=== PATIENT | female | born 1965 | race Caucasian/White ===

== ENCOUNTER 2023-07-06 09:56 | Outpatient (CLI) | payer BC, SELFPAY | END 2023-07-06 09:57 | disposition home or self-care (01) | LOC: NFLDREF 09:57 | PROVIDERS: PCP Family Medicine; Visit Provider Family Medicine | DX: R10.11 Right upper quadrant pain (principal); R53.83 Other fatigue | CPT/HCPCS: 80053 ==

== ENCOUNTER 2023-07-11 08:39 | Outpatient (CLI) | payer BC, SELFPAY ==
--- NOTE | 2023-07-11 08:45 | CRLHL7_ITS ---
For Patients: As a result of the Century Cures Act, medical imaging exams and procedure reports are released immediately into your electronic medical record. You may view this report before your referring provider. If you have questions, please contact your health care provider. INDICATION: Right upper quadrant pain COMPARISON: CT 09/30/2021 TECHNIQUE: Real time sellers scale imaging and color Doppler analysis was performed of the right upper quadrant. FINDINGS: The patient`s liver is of normal size and has diffusely increased echogenicity. There is a normal appearance of the hepatic IVC and proximal abdominal aorta. There is no evidence of ascites. The gallbladder is of normal size and there are adherent foci associated with the gallbladder wall measuring up to 5 millimeters. The gallbladder wall measures 2.7 mm in thickness. The common bile duct is of normal size and measures 4 mm in diameter at the level of the mariluz hepatis. The pancreas appears normal. Hyperechoic focus within the right kidney measuring 5 millimeters. The right kidney measures 11 point cm in length. IMPRESSION: Adherent sludge versus polyps in the gallbladder measuring up to 5 millimeters. No biliary obstruction. Hepatic steatosis. Nonobstructing 5 millimeter right renal stone. Dictated by Jeremy Quinn MD @ 07/13/2023 6:23:46 AM (Electronically Signed)
== END 2023-07-11 08:40 | disposition home or self-care (01) ==
LOC: US 08:39
PROVIDERS: PCP Family Medicine; Visit Provider Family Medicine
DX: R10.11 Right upper quadrant pain (principal); K76.0 Fatty (change of) liver, not elsewhere classified; N20.0 Calculus of kidney
CPT/HCPCS: 76705

== ENCOUNTER 2023-07-31 08:58 | Day surgery (SDC) | payer BC, SELFPAY ==
[2023-07-31] VITALS (15 sets, daily range): BP systolic 138–160; BP diastolic 67–98; PULSE 72–89; RESP 10–16; TEMP 36.4–37.3; O2SAT 95–99; BMI 34.2
[2023-07-31] MEDS: LACTATED RINGERS 1000 ML 1,000 ML 100 ML IV (09:31)
--- NOTE | 2023-07-31 09:44 | P.GSOP_ITS ---
Operative Note Pre-op diagnosis: 1. Chronic cholecystitis. 2. Possible biliary colic. Post-op diagnosis: Same Type of Procedure: 1. Laparoscopic cholecystectomy. Indications: 58-year-old female was seen in clinic for evaluation of right upper quadrant pain. Patient stated that she had ?GI issues? for years. She has diarrhea once a week and her bowel movements are usually not regular. However, her abdominal pain was new. In the last 5 weeks prior to her presentation to clinic she complained of dull aching and occasional sharp episodes of right upper quadrant pain. The pain was usually present after eating and sometimes without eating. The pain would start 30-60 minutes after eating and was associated with nausea and bloating. Patient vomited once. She did a trial of omeprazole but did not notice improvement in her pain. Upon her workup she was found to have normal WBC and normal liver function tests. Her gallbladder ultrasound showed gallbladder sludge versus polyps measuring up to 5 mm. The common bile duct was normal at 4 mm. In the gallbladder wall was measuring 3 mm thick. On clinical exam patient had tenderness to deep palpation in the right upper quadrant with negative Salmon sign. Given patient's clinical history and her laboratory and imaging findings, chronic cholecystitis and possible biliary colic was suspected, and laparoscopic cholecystectomy was recommended. The procedure was discussed in detail. The risks associated procedure including infection, bleeding, injury to intra-abdominal organs, and injury to the common bile duct were all discussed with the patient, and she agreed to proceed. Procedure Description: After discussing the risks and benefits of the procedure, the patient signed informed consent.? The operative site was marked and the patient was brought to the operating room and placed on the operating table in supine position.? Care was taken to pad the patient's pressure points.?? The patient was then intubated by anesthesia.?? The operative site was then prepped and draped in the usual sterile fashion.? A time-out was then performed. A 5-mm laparoscopy port was placed in the left upper quadrant guided by a 5-mm laparoscope placed into a translucent trochar.~ Passage through the layers of the abdominal wall was visualized with the laparoscope.~ A pneumoperitoneum was established. A 0-degree 5-mm laparoscope was advanced into the abdomen. The abdomen was briefly surveyed, and no adhesions were noted. A 10-mm port were placed infraumbilically and two more 5 mm ports were placed on the right under direct visualization by laparoscope. The camera was then changed to 10 mm 30- degree scope and placed into the abdomen through the 10 mm port. The left upper quadrant port entrance was examined and no injury to intra-abdominal organs was identified. The gallbladder was identified, the fundus grasped and retracted cephalad. Omentum was adherent to the anterior wall of the gallbladder and those adhesions were taken down with cautery. The infundibulum was grasped and retracted laterally, exposing the peritoneum overlying the triangle of Calot. This was th en divided and exposed in a blunt fashion and with hook cautery. Common bile duct was not identified but care was taken not to injure it. The cystic duct was clearly identified and bluntly dissected circumferentially. Cystic artery was identified and tissues around it were dissected off. The cystic artery was curving on the medial side of the gallbladder. This was clipped with 5 mm clips on the patient's side and the gallbladder side and divided with scissors. The cystic duct was then further skeletonized bluntly and with hook cautery. Posterior laterally to the cystic duct the divided ti ssue was friable and contained a small vein. I elected to place 5 mm clips on this divided tissue to avoid bleeding. The cystic duct was then doubly ligated with surgical clips on the patient's side and singly clipped on the gallbladder side and divided. The gallbladder was dissected from the liver bed in retrograde fashion using hookcautery. The gallbladder was placed into an Endo-Catch bag and removed through the infraumbilical incision. Surgical site was examined for bleeding. Bleeding from the liver bed was controlled with hook cautery. The fascia of the infraumbilical incision was then closed with 0-0 vicryl using Eric Inna needle under direct visualization. Pneumoperitoneum was completely reduced after viewing removal of the trocars under direct vision. The skin was then closed with 4-0 monocryl and steristrips were applied. Instrument, sponge, and needle counts were correct at closure and at the conclusion of the case. The patient was transferred to PACU in stable condition. Findings: No acute inflammation noted. The gallbladder was floppy and omentum was adherent to the gallbladder suggestive of chronic inflammation. Anesthesia: GETA Surgeon: Uriel Candelaria MD Estimated blood loss (mL): 5 Specimen: Gallbladder Condition: stable Disposition: PACU Date of procedure: 07/31/23
--- NOTE | 2023-07-31 09:44 | W.PM.H&PU ---
History & Physical Update History & Physical Update H&P Reviewed and patient assessed: No changes noted
[2023-07-31] MEDS: CEFAZOLIN 2 GM INJ IVP (10:21)
--- NOTE | 2023-07-31 11:28 | W.ANESCHARGE ---
Anesthesia Charges Start Date/Time Anesthesia Start Date: 07/31/23 Anesthesia Start Time: 10:12 Stop Date/Time Anesthesia Stop Date: 07/31/23 Anesthesia Stop Time: 11:21
[2023-07-31] MEDS: HYDROmorphone 0.5 mg/0.5 ml inj IVP ×2 (11:36→11:49)
--- NOTE | 2023-07-31 11:38 | W.ANESCHARGE ---
Anesthesia Charges Start Date/Time Anesthesia Start Date: 07/31/23 Anesthesia Start Time: 10:12 Stop Date/Time Anesthesia Stop Date: 07/31/23 Anesthesia Stop Time: 11:21
[2023-07-31] MEDS: HYDROCODONE-ACETAMIN 5-325 MG 1 TAB PO (12:22)
== END 2023-07-31 13:13 | disposition home or self-care (01) ==
PROVIDERS: PCP Family Medicine; Visit Provider Surgery
PROC: 0FT44ZZ Resection of Gallbladder, Percutaneous Endoscopic Approach (ICD-10-PCS; CPT 47562; principal; 2023-07-31 10:15)
DX: K81.1 Chronic cholecystitis (principal)
CPT/HCPCS: 47562; 00790; 88304; A9270; J0330; J0690; J1100; J1170; J2250; J2405; J2704; J3010; J3490; J7120

== ENCOUNTER 2023-10-29 08:21 | Outpatient (CLI) | payer BC, SELFPAY ==
--- NOTE | 2023-10-29 08:15 | MM_ITS ---
BILATERAL SCREENING MAMMOGRAPHY. COMPARISON: 08/26/2021, 04/04/2017, 11/25/2012 FINDINGS: SCATTERED FIBROGLANDULAR DENSITIES ARE PRESENT. NO SUSPICIOUS FINDINGS. IMPRESSION: NO EVIDENCE OF MALIGNANCY. RECOMMENDATIONS: ANNUAL BILATERAL SCREENING MAMMOGRAPHY. BI-RADS CATEGORY 1. NEGATIVE.
--- OUTSIDE RECORDS SUMMARY | 2023-10-29 08:41 | XMS_ITS | Clinical Summary ---
Author Name Unknown Organization [facility] Address [address] [place] [address] Care Team Providers Care Filler And Trimmer Name Role Phone Unavailable Primary Care Provider Unavailabl e Source Comments Patient records contain information from all sites at [facility]. For routine questions regarding patient records, call [phone] during business hours, M-F 8:00 AM - 5:00 PM Central Time. Record requests for emergency care only can be directed to [phone] at any time.[facility] Allergies Active Allergy Reactions Criticality Noted Date Comments Codeine Other (see comments),GI intolerance High 02/01/2007 Medications Medication Sig Dispensed Refills Start Date End Date Status albuterol 90 mcg/actuation inhaler Inhale 2 puffs. 0 03/03/2014 Active albuterol 90 mcg/actuation inhaler 2 puffs every 4 (four) hours as needed. for wheezing or difficult breathing 0 08/08/2021 Active amoxicillin (AMOXIL) 500 mg capsule amoxicillin 500 mg capsule TAKE 1 CAPSULE BY MOUTH FOUR TIMES A DAY FOR 10 DAYS. 0 Active metroNIDAZOLE (METROGEL) 0.75 % vaginal gel INSERT 1 APPLICATORFUL VAGINALLY AT BEDTIME FOR 5 DAYS 0 10/02/2021 Active estradioL (ESTRACE) 0.1 mg/g (0.01%) vaginal cream Insert 1 g into the vagina 3 (three) times a week. Take 1 g vaginally 3 nights per week. 42.5 g 0 11/04/2021 Active Social History Tobacco Use Types Packs/Day Years Used Date Smoking Tobacco: Never Assessed Nutrition Answer Date Recorded Nutrition: EVOO Fat Source Unknown 10/26 Nutrition: Servings of Fruits/Vegetables per Day Not on file 10/26/2021 Dental Answer Date Recorded Dental: Regular Dentist Unknown 10/26/19 Sex and Gender Information Value Date Recorded Sex Assigned at Not on file Gender Identity Not on file Sexual Orientation Not on file Last Filed Vital Signs Vital Sign Reading Time Taken Comments Blood Pressure 137/88 11/03/2021 2:23 PM FIREARMS INSTRUCTOR Pulse 80 11/03/2021 2:23 PM FIREARMS INSTRUCTOR Temperature - - Respiratory Rate - - Oxygen Saturation - - Inhaled Oxygen Concentration - - Weight 90.4 kg (199 lb 4.7 oz) 11/03/2021 2:23 P M FIREARMS INSTRUCTOR Height 168.6 cm (5' 6.38) 11/03/2021 2:23 PM CS T Body Mass Index 31.8 11/03/2021 2:23 PM FIREARMS INSTRUCTOR Plan of Treatment Health Maintenance Due Date Last Done Comments CT Colonography 1967 Cervical Cancer Screening 1967 Cologuard 1967 Colonoscopy 1967 Colorectal Cancer Screening 1967 FIT 1967 Fasting Glucose for Diabetes Screening 1967 HIV Screening 1967 Hepatitis B Vaccines (1 of 3 - 3-dose series) 1967 Hepatitis C Screening 1967 Lipid (Cholesterol) Screening 1967 Mammogram 1967 COVID-19 Vaccine (#1) 01/23/1968 Zoster Vaccines (1 of 2) 2017 DTaP,Tdap,and Td Vaccines (2 - Td or Tdap) 11/25/2022 11/25/2012 Influenza Vaccine (#1) 2023 0, 06/27/2012, 06/30/2011, Additional history exists Depression Screening (Annual PHQ-2) 09/17/2023 Pneumococcal vaccine (0-64 years) Aged Out No longer eligible based on patient's age to complete this topic
--- OUTSIDE RECORDS SUMMARY | 2023-10-29 08:41 | XMS_ITS ---
Author Name Unknown Organization [facility] Address [address] [place] [address] Care Team Providers Care Small Engine Technician Name Role Phone Unavailable Unavailable Unavailable Surgery Details Not on file Complications Check Surgery Details section. Procedure Estimated Blood Loss Check Surgery Details section. Procedure Findings Check Surgery Details section. Procedure Specimens Taken Check Surgery Details section.
--- OUTSIDE RECORDS SUMMARY | 2023-10-29 08:41 | XMS_ITS | Clinical Summary ---
Author Name Unknown Organization [facility] Address [place], [place] [address] Care Team Providers Care Transcribing Operators Supervisor Name Role Phone Josias Ca MD Primary Care Provider [phone] Allergies Active Allergy Reactions Criticality Noted Date Comments Codeine Syncope,Vomiting 02/01/2007 Medications Medication Sig Dispensed Refills Start Date End Date Status estradioL (ESTRACE) 1 mg tablet Take 1 mg by mouth once daily. 0 08/03/2022 Active Active Problems Problem Noted Date Diagnosed Date Major depression, recurrent 06/10/2010 Helicobacter pylori (H. 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 Tarsal tunnel syndrome 04/10/2008 Allergic rhinitis, cause unspecified 02/01/2007 Unspecified asthma(493.90) 02/01/2007 Resolved Problems Problem Noted Date Diagnosed Date Resolved Date Major depressive disorder, s wendi episode, unspecified 10/27/2008 06/10/2010 Encounters Date Type Department Care Team Description 07/31/2023 Lab Requisition [facility] [phone] Uriel Candelaria MD from Last 3 Months Immunizations Name Administration Dates Next Due MMR 04/28/2014 Td (Age >=7 Years) 06/30/2003 Tdap 11/25/2012 Family History Medical History Relation Name Comments Hypertension Maternal Grandmother Hypertension Mother Heart Disease Paternal Grandfather Cancer-breast No Family History Relation Name Status Comments Maternal Grandmother Mother Paternal Grandfather Social History Tobacco Use Types Packs/Day Years Used Date Smoking Tobacco: Former Cigarettes 0.3 20 0 09/17/1997 - 09/17/2017 Smokeless Tobacco: Former Quit: 09/17/2017 Tobacco Cessation:Counseling Given: Yes Comments:occasionally; smoking for 20 years Alcohol Use Standard Drinks/Week Comments Yes 0 (1 standard drink = 0.6 oz pur e alcohol) social PHQ-2 Answer Date Recorded PHQ-2 Score 0 11/18/2018 Sex and Gender Information Value Date Recorded Sex Assigned at Not on file Gender Identity Not on file Sexual Orientation Not on file Obstetrics History Para Term AB IAB SAB Ectopic Multiple Livin g Live Births 3 3 3 3 Date Outcome GA Total Labor Labor/2nd/3rd Weight Sex Delivery Anes PTL Julissa A1 A5 Name Cl in Term Term Term Last Filed Vital Signs Vital Sign Reading Time Taken Comments Blood Pressure 129/87 01/10/2018 3:08 PM CDT Pulse 84 08/08/2022 2:59 PM CONTROL OPERATOR FLOW COAT Temperature 36.7 ??C (98 ??F) 01/10/2018 3:08 PM CDT Respiratory Rate 18 03/07/2010 2:19 PM CDT Oxygen Saturation 96% 08/08/2022 2:59 PM CONTROL OPERATOR FLOW COAT Inhaled Oxygen Concentration - - Weight 92.5 kg (204 lb) 08/08/2022 2:59 PM CONTROL OPERATOR FLOW COAT Height 167.5 cm (5' 5.95) 01/10/2018 3:08 PM CD T Body Mass Index 32.98 01/10/2018 3:08 PM CDT Plan of Treatment Health Maintenance Due Date Last Done Comments COVID-19 vaccine series (#1) 01/23/1968 HIV for age 15-65 1982 Hepatitis C screening for age 18-79 1985 Zoster (shingles) series for age 50+ (1 of 2) 2017 Lipids for age 45-75 01/08/2018 01/08/2013, 07/11/20 06 Depression screening for age 12+ 12/04/2018 12/04/2017 BMI (ht and wt on same day) for age 18+ 01/10/2019 01/10/2018, 12/04/2017 Mammogram for age 45-75 02/15/2019 02/16/20 18, 03/05/2014, 11/25/2012, Additional history exists Pap test for age 21-65 04/04/2020 7, 04/04/2017, 11/25/2012, Additional history exists Tetanus booster 11/25/2022 11/25/2012, 06/30/2003 Influenza for age 50-64 05/18/2023 Colonoscopy through age 75 10/17/2027 10/17/2017 Tdap Completed 11/25/2012 Pneumococcal series for age 6-64 Aged Out No longer eligible based on patient's age to complete this topic Procedures Procedure Name Priority Date/Time Associated Diagnosis Comments LAB TRACKING EVENT Routine 07/31/2023 10 :59 AM CONTROL OPERATOR FLOW COAT PATH TISSUE EXAM Routine 07/31/2023 10:5 9 AM CONTROL OPERATOR FLOW COAT from Last 3 Months Results * LAB TRACKING EVENT (07/31/2023 10:59 AM CONTROL OPERATOR FLOW COAT) Other (Other) Client Collect / Unknown 07/31/2023 10:59 AM CONTROL OPERATOR FLOW COAT 07/31/2023 9:35 PM CONTROL OPERATOR FLOW COAT Uriel Candelaria MD LAB BILL ONLY [facility] [address] [place] [address], * PATH TISSUE EXAM (07/31/2023 10:59 AM CONTROL OPERATOR FLOW COAT) Case Report Pathology Report ?Case: [id number] ? Authorizing Provider: ??Uriel Candelaria MD ?Collected: ? 07/31/2023 1059 ? Ordering Location: ? [facility] ?Received: ?08/01/2023 1033 ? Pathologist: ? Noe Clarke ? MD ZAK ? Specimen: ?Gallbladder ? 08/02/2023 3:20 PM [facility] Final Diagnosis A) GALLBLADDER, CHOLECYSTECTOMY: 1. Chronic cholecystitis with cholesterolosis 2. Negative for cholelithiasis 3. Negative for dysplasia and malignancy 08/02/2023 3:20 PM [facility] Clinical Information Ms. Pond is a 58 y.o. who undergoes cholecystectomy. 08/02/2023 3:20 PM [facility] Gross Description A) Received in formalin, labeled with the patient's name and gallbladder, is a 8.0 x 3.0 x 2.0 cm disrupted gallbladder. ??No discrete gallstones are identified. There is fine yellow stippling in the mucosa; no other lesions are identified. The average wall thickness is 0.3 cm. There is no abnormal wall thickening identified. No cystic duct lymph node is identified. Direct Marketing Manager sections are submitted in one cassette. MILENA 08/01/2023 08/02/2023 3:20 PM [facility] Microscopic Description The final diagnosis is based on microscopic examination of appropriate sections of all specimens. 08/02/2023 3:20 PM CONTROL OPERATOR FLOW COAT [facility] Additional Information Interpreted at [facility], Central Laboratory - [address], [place] [address] 08/02/2023 3:20 PM CONTROL OPERATOR FLOW COAT [facility] Other SPECIMEN FROM GALLBLADDER / Unknown 07/31/2023 10:59 AM CONTROL OPERATOR FLOW COAT 08/01/2023 10:33 AM CONTROL OPERATOR FLOW COAT Uriel Candelaria MD [facility] [address] [place] [address], from Last 3 Months Care Teams Transcribing Operators Supervisor Relationship Specialty Start Date End Date Josias Ca MD [address] [place] [id number] PCP - General Family Practice 12/05/17
--- OUTSIDE RECORDS SUMMARY | 2023-10-29 08:41 | XMS_ITS | Referral Summary ---
Author Name Unknown Organization [facility] Address [address] [place] [address] Care Team Providers Care Management Development Specialist Name Role Phone Unavailable Primary Care Provider Unavailabl e Source Comments Patient records contain information from all sites at [facility]. For routine questions regarding patient records, call [phone] during business hours, M-F 8:00 AM - 5:00 PM Central Time. Record requests for emergency care only can be directed to [phone] at any time.[facility] Allergies Active Allergy Reactions Criticality Noted Date [...] Date Recorded Dental: Regular Dentist Unknown 10/26/19 22 Sex and Gender Information Value Date Recorded Sex Assigned at Not on file Gender Identity Not on file Sexual Orientation Not on file Last Filed Vital Signs Vital Sign Reading Time Taken Comments Blood Pressure 137/88 11/03/2021 2:23 PM MISSION WORKER Pulse 80 11/03/2021 2:23 PM MISSION WORKER Temperature - - Respiratory Rate - - Oxygen Saturation - - Inhaled Oxygen Concentration - - Weight 90.4 kg (199 lb 4.7 oz) 11/03/2021 2:23 P M MISSION WORKER Height 168.6 cm (5' 6.38) 11/03/2021 2:23 PM CS T Body Mass Index 31.8 11/03/2021 2:23 PM MISSION WORKER Plan of Treatment Not on file
== END 2023-10-29 08:22 | disposition home or self-care (01) ==
LOC: MAMMO 08:22
PROVIDERS: PCP Family Medicine; Visit Provider Family Medicine
DX: Z12.31 Encounter for screening mammogram for malignant neoplasm of breast (principal)
CPT/HCPCS: 77063; 77067; 80061

== ENCOUNTER 2024-07-28 06:20 | Day surgery (SDC) | payer BC, SELFPAY ==
[2024-07-28] VITALS (18 sets, daily range): BP systolic 114–167; BP diastolic 75–98; PULSE 59–91; RESP 16; TEMP 36.1–36.8; O2SAT 92–98; BMI 33.7
--- OUTSIDE RECORDS SUMMARY | 2024-07-28 06:24 | XMS_ITS | Clinical Summary ---
Author Organization [facility] Address [place], [place] [address] Care Team Providers Care Color Shop Helper Name Role Phone Josias Ca MD Primary Care Provider [phone] Allergies Active Allergy Reactions Criticality Noted Date Comments Codeine Syncope,Vomiting 02/01/2007 Medications Medication Sig Dispensed Refills Start Date End Date Status estradioL (ESTRACE) 1 mg tablet Take 1 mg by mouth once daily. 08/03/2022 Active Active Problems Problem Noted Date Diagnosed Date Major depression, recurrent 06/10/2010 Helicobacter pylori (H. 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 Tarsal tunnel syndrome 04/10/2008 Allergic rhinitis, cause unspecified 02/01/2007 Unspecified asthma(493.90) 02/01/2007 Resolved Problems Problem Noted Date Diagnosed Date Resolved Date Major depressive disorder, s wendi episode, unspecified 10/27/2008 06/10/2010 Immunizations Name Administration Dates Next Due MMR [...] Outcome GA Total Labor Labor/2nd/3rd Weight Sex Type Anes PTL Julissa A1 A5 Name Clin Term Term Term Last Filed Vital Signs Vital Sign Reading Time Taken Comments Blood Pressure 129/87 01/10/2018 3:08 PM CDT Pulse 84 08/08/2022 2:59 PM ASSISTANT DISTRIBUTION MANAGER Temperature 36.7 ??C (98 ??F) 01/10/2018 3:08 PM CDT Respiratory Rate 18 03/07/2010 2:19 PM CDT Oxygen Saturation 96% 08/08/2022 2:59 PM ASSISTANT DISTRIBUTION MANAGER Inhaled Oxygen Concentration - - Weight 92.5 kg (204 lb) 08/08/2022 2:59 PM ASSISTANT DISTRIBUTION MANAGER Height 167.5 cm (5' 5.95) 01/10/2018 3:08 PM CD T Body Mass Index 32.98 01/10/2018 3:08 PM CDT Plan of Treatment Health Maintenance Due Date Last Done Comments HIV for age 15-65 1982 Hepatitis C [...] history exists Tetanus booster 11/25/2022 11/25/2012, 06/30/2003 COVID-19 vaccine series ( season) 2024 Influenza for age 50-64 05/18/2024 Colonoscopy through age 75 10/17/2027 10/17/2017 Tdap Completed 11/25/2012 Pneumococcal series for age 6-64 Aged Out No longer eligible based on patient's age to complete this topic Procedures Procedure Name Priority Date/Time Associated Diagnosis Comments XR MAMMO UNI DIAGNOSTIC RIGHT Routine 02/15/2018 1:30 PM CDT Lump of axilla, right SCAN-COLONOSCOPY 10/17/2017 12:0 0 AM ASSISTANT DISTRIBUTION MANAGER TRADES HELPER THIN PREP PAP SCREEN IMAGED Routine 04/04/2017 2:30 PM CDT LIPID PANEL W REFLEX MEASURED LDL Routine 01/08/2013 4:03 PM CDT Lipid screening from Last 3 Months or Most Recently Relevant to Health Maintenance Results * XR MAMMO UNI DIAGNOSTIC RIGHT (02/15/2018 1:30 PM CDT) Anatomical Region Laterality Modality BREASTS, Breast Right Mammograph y Impressions 02/18/2018 8:05 AM CDT The palpable lumps in the RIGHT axilla represent probable reactive axillary lymph nodes. BI-RADS Category 2: Benign Dictated by: Marquez Pratt MD @02/15/2018 1:39:05 PM Narrative 02/18/2018 8:05 AM CDT DIGITAL DIAGNOSTIC RIGHT MAMMOGRAM WITH COMPUTER-AIDED DETECTION, 02/15/2018 RIGHT AXILLARY ULTRASOUND, 02/15/2018 INDICATION: Two lumps in RIGHT axilla. TECHNIQUE: ?? Unilateral RIGHT mammogram was performed. CC, MLO, and true lateral views of the RIGHT breast was obtained. COMPARISON: Prior mammograms of 04/04/2017, 03/05/2014, and 11/25/2012. FINDINGS: MAMMOGRAM: ??The breast parenchyma is heterogeneously dense. There are lymph nodes in the RIGHT axilla which have not changed significantly from prior mammograms. No spiculated masses or suspicious clustered pleomorphic microcalcifications are identified. Markers were placed at the sites of the palpable lumps. Targeted ultrasound will be performed for further evaluation. ULTRASOUND: ??Targeted ultrasound was performed of the RIGHT axilla. Scanning was performed at the 10 o'clock position, 10-11 cm from the nipple. There were two probably reactive lymph nodes identified. There was a 1.0 x 1.2 x 0.7 cm lymph node and a 1.8 x 1.1 x 0.7 cm lymph node. Michelle Mei PA-C MAMMO * SCAN-COLONOSCOPY (10/17/2017 12:00 AM ASSISTANT DISTRIBUTION MANAGER) Scanner OTHER * TRADES HELPER THIN PREP PAP SCREEN IMAGED (04/04/2017 2:30 PM CDT) Pathologist [facility] Case Report Gynecologic Cytology Report ? Case: [id number] ? Authorizing Provider: ??Bharti Tinajero ?Collected: ? 04/04/2017 1430 ? MD Ijeoma ? First Screen: ?Yenny Zhu ?Received: ?04/05/2017 1443 ? Specimen: ?TRADES HELPER ThinPrep Vial Screening, Cervical/Vaginal ? 04/11/2017 1:48 PM CDT [facility] INTERPRETATION/ RESULT NEGATIVE FOR INTRAEPITHELIAL LESION OR MALIGNANCY (NIL) (none) 04/11/2017 1:48 PM CDT [facility] IMEN ADEQUACY Satisfactory for evaluation Endocervical component present 04/11/2017 1:48 PM CDT [facility] HPV REQUEST HPV and PAP 04/11/2017 1:48 PM CDT [facility] Last Pap Date 11/22/2013 04/11/2017 1:48 PM CDT [facility] Last Pap Result NIL 7 1:48 PM CDT [facility] Automated Review Successful 04/11/2017 1:48 PM CDT [facility] Comment:Specimen processed s uccessfully by automated print buyer device, EducreationsPrep Imaging System, [employer] ANCILLARY TESTING TRADES HELPER HPV Ordered, Please see separate report 04/11/2017 1:48 PM CDT [facility] Note The pap test is a screening technique, not a diagnostic procedure. ??It is used primarily to screen for squamous cancers and precursor lesions. ??Published studies have shown that it is subject to both false negative and false positive results. ??The pap test should not be used as the sole means to diagnose or exclude pre-malignant and malignant lesions. Interpreted at [facility] (Central Lab, [facility], [facility], [facility], [facility], [facility], [facility]) 04/11/2017 1:48 PM CDT [facility] Other (Cervical/Vagina l) 04/04/2017 2:30 PM CDT 04/05/2017 2:43 PM CDT Bharti Tinajero MD PATHOLOGY/ CYTOLOGY [facility] [address] [place] [address], * LIPID PANEL W REFLEX MEASURED LDL (01/08/2013 4:03 PM CDT) CHOLESTEROL,TOTAL 155 100 - 199 mg/dL 01/08/2013 4:46 PM CDT [facility] TRIGLYCERIDES 146 <150 mg/dL 01/08/2013 4:46 PM CDT [facility] HDL CHOLESTEROL 44 >40 mg/dL 3 4:46 PM CDT [facility] NON-HDL CHOLESTEROL 111 <145 mg/dl 01/08/2013 4:46 PM CDT [facility] CHOL/HDL RATIO 3.52 <4.50 01/08/2013 4:46 PM CDT [facility] LDL CHOLESTEROL 82 <=130 mg/dL 01/08/2013 4:46 PM CDT [facility] PATIENT STATUS NON-FASTI NG 01/08/2013 4:46 PM CDT [facility] Blood specimen (specimen) BLOOD SPECIMEN / Unknown 01/08/2013 4:03 PM CDT 01/08/2013 4:03 PM CDT Aba Storm MD CHEMISTRY [facility] [address] [place] [address] from Last 3 Months or Most Recently Relevant to Health Maintenance Care Teams Color Shop Helper Relationship Specialty Start Date End Date Josias Ca MD [address] [place] [id number] PCP - General Family Practice 12/05/17
[2024-07-28] MEDS: ACETAMINOPHEN 500 MG TABLET 1000 MG PO (07:00)
[2024-07-28] MEDS: OXYCODONE (CR) 10 MG TAB.ER.12H PO (07:00)
--- NOTE | 2024-07-28 07:03 | W.PM.H&PU ---
History & Physical Update History & Physical Update H&P Reviewed and patient assessed: No changes noted
[2024-07-28] MEDS: LACTATED RINGERS 1000 ML 1,000 ML 100 ML IV (07:05)
[2024-07-28] MEDS: SODIUM CHLORIDE 0.9 % (FLUSH) 10 ML SYRINGE IVF ×2 (07:05→11:00)
--- NOTE | 2024-07-28 07:09 | CRLHL7_ITS ---
For Patients: As a result of the Cures Act, medical imaging exams and procedure reports are released immediately into your electronic medical record. You may view this report before your referring provider. If you have questions, please contact your health care provider. INDICATION: Total knee replacement TECHNIQUE: Knee radiograph 2 views right COMPARISON: None FINDINGS: Bone: No acute fractures or aggressive bone lesions are identified. Joint: The patient is status post a total knee arthroplasty with patellar resurfacing. No significant knee effusion is seen. Soft tissue: Anterior subcutaneous gas and joint gas are present from recent surgery. No radiopaque foreign bodies are seen. IMPRESSION: 1. There is an unremarkable postoperative appearance of the knee arthroplasty. Dictated by: Karlo Jay MD @ 07/28/2024 12:57:20 (Electronically Signed)
[2024-07-28] MEDS: MIDAZOLAM HCL 1 MG/ML inj IVP (07:10)
[2024-07-28] MEDS: fentaNYL 100 MCG/2 ML inj IVP (07:10)
--- NOTE | 2024-07-28 07:24 | SUR.PREOP ---
TIME?OUT:?0710 PT/RN/MDA?VERIFICATION?OF?SURGICAL?SITE,?PROCEDURE,?AND?CONSENT OBTAINED?PRIOR?TO?INVASIVE?PROCEDURE.
[2024-07-28] MEDS: CEFAZOLIN 2 GM in 0.9 % SODIUM CHLORIDE Mini-bag 100 ML IVPB (07:30)
[2024-07-28] MEDS: TRANEXAMIC ACID 100 MG/ML INJ 1000 MG IV (07:32)
--- NOTE | 2024-07-28 08:43 | PM.ORPRC ---
Procedure Note Date of procedure: 07/28/24 Procedure: PREOPERATIVE DIAGNOSIS: 1. Right knee osteoarthritis, primary, severe POSTOPERATIVE DIAGNOSIS: 1. Right knee osteoarthritis, primary, severe PROCEDURE: 1. Right total knee arthroplasty SURGEON: Alan Nelson MD. HEALTH INFORMATION TECH: Henry Greene PA-C - Of note, a skilled administrative sales assistant was critical for this case to aid in patient positioning, tissue retraction, limb manipulation/positioning, and closure. ANESTHESIA: Spinal anesthetic EBL: 50ml IMPLANTS: DePuy J&J uncemented femur/tibia, cemented patella TKA - Attune Press fit PS femur size 5 regular, size for tibia, 5mm poly spacer, 38 mm cemented patella TOURNIQUET: 80 minutes at 300 torr COMPLICATIONS: None evident INDICATIONS: The patient is a pleasant 59-year-old female who has experienced severe right knee pain and difficulty bearing weight. Workup included x-rays which revealed severe osteoarthrosis in the knee. Given the deformity, the dysfunction, and the pain, as well as the failure of nonoperative management, recommendation was made for surgery. FINDINGS: Full-thickness chondral loss diffusely throughout the medial and to lesser degree patella and lateral compartment. Degenerative meniscus pathology both compartments. Moderate effusion upon entering the joint. Tricompartmental osteophytosis. DESCRIPTION OF PROCEDURE: Following a thorough discussion of risks, benefits, and alternatives consent was obtained and the right knee was marked. The patient was brought to the operating room and placed supine on the operating table. Induction of anesthesia was undertaken. 2 g IV Ancef and 1 g tranexamic acid was administered within 1 hr of incision preoperatively. Proper time-out was performed identifying proper patient, site, procedure. The operative extremity was prepped and draped in the appropriate sterile fashion using ChloraPrep after the patient was positioned supine with all bony prominences well padded. A longitudinal, anterior, midline skin incision was made starting approximately 3cm proximal to the superior pole of the patella and advanced distal to the tibial tubercle. A sub vastus approach was utilized . After mobilizing the patella, retropatellar fatpad was resected and the synovium in the suprapatellar pouch excised to visualize the anterior femoral cortex. Femoral preparation was performed via an intramedullary guide. Step drill allowed access into the femoral canal. The distal cutting guide was placed with 5? of valgus and 10 mm cut on the distal femur. Femur was sized using a anterior referencing guide in 3? of external rotation. This found have a best fit with the sizing noted above. The 4 in 1 cutting block was then placed, and the distal femur shaped accordingly. The box cut was then created and the trial implant inserted to confirm appropriate fit. We turned our attention to the proximal tibia. Extramedullary guide was utilized for cutting with the goal of being 90 degree cut from the mechanical axis of the tibia in the varus/valgus plane utilizing tibial crest as the primary alignment. Initially a 3 mm resection was performed from the medial tibial plateau. An additional 2 mm to require resection to achieve appropriate balance in flexion and extension. Ultimately, balancing was achieved in both flexion and extension in both varus and valgus. The knee was able to achieve full extension comfortably. It was sized to be a best fit with as noted above. Patellar prep began with an initial measurement/thickness of 24 mm. It was resected back to approximately 14 mm. The patella prep was completed with drilling and a trial placed. At this stage, trial implants were removed, the tibia and femoral components were opened and inserted. Thereafter, the patella was thoroughly irrigated normal saline and dried. The cement was previously mixed on the back table and cement placed followed by the implant. This was clamped and allowed remained stable until the cement cured. The real poly spacer was opened and inserted. All extra cement was removed, and a 3 min Betadine soak performed. Finally, a final irrigation round with normal saline was performed. Closure performed with 0 PDS and #0 Stratafix for the quad tendon/retinaculum. 2-0 Vicryl/Stratafix for the subcutaneous and 4-0 Monocryl for subcuticular closure. Dressings were applied and the patient was awoken from anesthesia after the tourniquet deflated and transferred the PACU in stable condition. A skilled administrative sales assistant was critical for this case to aid in patient positioning, tissue retraction, bone exposure, limb manipulation/positioning, patient safety, and closure. PLAN: 1. Weight bear as tolerated operative extremity. 2. 23 hr perioperative antibiotics. 3. Ice. 4. PT/OT consults for ambulation assistance/mobility education. 5. Social work consult for discharge planning. 6. DVT prophylaxis with at SCDs, and aspirin twice daily.
--- NOTE | 2024-07-28 09:28 | W.ANESCHARGE ---
Anesthesia Charges Start Date/Time Anesthesia Start Date: 07/28/24 Anesthesia Start Time: 07:16 Stop Date/Time Anesthesia Stop Date: 07/28/24 Anesthesia Stop Time: 09:26
--- NOTE | 2024-07-28 09:36 | W.ANESCHARGE ---
Anesthesia Charges Start Date/Time Anesthesia Start Date: 07/28/24 Anesthesia Start Time: 07:16 Stop Date/Time Anesthesia Stop Date: 07/28/24 Anesthesia Stop Time: 09:26
--- NOTE | 2024-07-28 09:37 | P.NB_ITS ---
Nerve Block Nerve Block Time Seen by Provider: 07:15 Date Seen: 07/28/24 Type of block requested by surgeon for post-operative analgesia: adductor canal Side: right Time out performed: Yes Verification of patient name: Yes Verification of date of : Yes Site marking: site marked Name of person performing procedure: Moe Continuous monitoring Was continuous monitoring of O2 sat, B/P, full stack web developer, recorded every 15 minutes?: Yes Procedure Checklist: sterile prep, needles and gloves Ultrasound guided. Images saved: Yes Medications given in 5ml increments after negative aspiration: Marcaine %: 0.25 mL: 15 Needle gauge: 20 Precedex (mcg): 25 Patient tolerated procedure well: Yes Block Charges Block Charge (with Pro Fee): Femoral Nerve Use of Ultrasound Machine for Block: Yes- US Guidance/pain block
--- NOTE | 2024-07-28 09:37 | P.NB_ITS ---
Nerve Block Nerve Block Time Seen by Provider: 07:15 Date Seen: 07/28/24 Type of block requested by surgeon for post-operative analgesia: geniculars Side: right Time out performed: Yes Verification of patient name: Yes Verification of date of : Yes Site marking: site marked Name of person performing procedure: Moe Continuous monitoring Was continuous monitoring of O2 sat, B/P, court recording monitor, recorded every 15 minutes?: Yes Procedure Checklist: sterile prep, needles and gloves Ultrasound guided. Images saved: Yes Medications given in 5ml increments after negative aspiration: Marcaine %: 0.25 mL: 9 Needle gauge: 25 Patient tolerated procedure well: Yes Block Charges Block Charge (with Pro Fee): Genicular Nerve Block
[2024-07-28] MEDS: HYDROmorphone 0.5 mg/0.5 ml inj IVP (11:00)
[2024-07-28] MEDS: hydrOXYzine pamoate 25 MG CAPSULE PO (11:00)
[2024-07-28] MEDS: IBUPROFEN 200 MG TABLET 400 MG PO (11:00)
[2024-07-28] MEDS: fentaNYL 100 MCG/2 ML inj 50 MCG IVP ×2 (11:21→12:39)
[2024-07-28] MEDS: OXYCODONE 5 MG TABLET PO (12:15)
[2024-07-28] MEDS: ACETAMINOPHEN 325 MG TABLET PO (12:57)
[2024-07-28] MEDS: ONDANSETRON 2 MG/ML inj 4 MG IVP (14:25)
== END 2024-07-28 14:40 | disposition home or self-care (01) ==
LOC: OR 06:21
PROVIDERS: PCP Family Medicine; Visit Provider Orthopaedic Surgery Sports Medicine
PROC: (CPT 27447; principal; 2024-07-28 07:15)
DX: M17.11 Unilateral primary osteoarthritis, right knee (principal); G89.18 Other acute postprocedural pain; S83.241A Other tear of medial meniscus, current injury, right knee, initial encounter; M25.761 Osteophyte, right knee; E66.9 Obesity, unspecified; Z68.34 Body mass index [BMI] 34.0-34.9, adult; F17.210 Nicotine dependence, cigarettes, uncomplicated; J45.20 Mild intermittent asthma, uncomplicated; Z79.890 Hormone replacement therapy
CPT/HCPCS: 27447; 01402; 64447; 64454; 73560; 76942; 97110; 97116; 97162; A9270; C1776; J0665; J0690; J1100; J1171; J2250; J2405; J2704; J3010; J7120

== ENCOUNTER 2024-08-11 14:24 | Outpatient (CLI) | payer BC, SELFPAY ==
--- OUTSIDE RECORDS SUMMARY | 2024-08-13 09:22 | XMS_ITS | Clinical Summary ---
Author Organization [facility] Address [place], [place] [address] Care Team Providers Care Dry Cell Battery Assembler Name Role Phone Josias Ca MD Primary Care Provider [phone] Allergies Active Allergy Reactions Criticality Noted Date [...] PM CDT Pulse 84 08/08/2022 2:59 PM BLACK JACK DEALER Temperature 36.7 C (98 F) 01/10/2018 3:08 PM CDT Respiratory Rate 18 03/07/2010 2:19 PM CDT Oxygen Saturation 96% 08/08/2022 2:59 PM BLACK JACK DEALER Inhaled Oxygen Concentration - - Weight 92.5 kg (204 lb) 08/08/2022 2:59 PM BLACK JACK DEALER Height 167.5 cm (5' 5.95) 01/10/2018 3:08 [...] axilla, right SCAN-COLONOSCOPY 10/17/2017 12:0 0 AM BLACK JACK DEALER ADVANCED MANUFACTURING TECHNICIAN THIN PREP PAP SCREEN IMAGED Routine 04/04/2017 [...] INDICATION: Two lumps in RIGHT axilla. TECHNIQUE: Unilateral RIGHT mammogram was performed. CC, MLO, and true lateral views of the RIGHT breast was obtained. COMPARISON: Prior mammograms of 04/04/2017, 03/05/2014, and 11/25/2012. FINDINGS: MAMMOGRAM: The breast parenchyma is heterogeneously dense. There are lymph nodes in the RIGHT axilla which have not changed significantly from prior mammograms. No spiculated masses or suspicious clustered pleomorphic microcalcifications are identified. Markers were placed at the sites of the palpable lumps. Targeted ultrasound will be performed for further evaluation. ULTRASOUND: Targeted ultrasound was performed of the RIGHT axilla. Scanning was performed at the 10 o'clock position, 10-11 cm from the nipple. There were two probably reactive lymph nodes identified. There was a 1.0 x 1.2 x 0.7 cm lymph node and a 1.8 x 1.1 x 0.7 cm lymph node. December Sigifredo CASTILLO MAMMO * SCAN-COLONOSCOPY (10/17/2017 12:00 AM BLACK JACK DEALER) Scanner OTHER * ADVANCED MANUFACTURING TECHNICIAN THIN PREP PAP SCREEN IMAGED (04/04/2017 2:30 PM CDT) Case Report Gynecologic Cytology Report Case: [id number] Authorizing Provider: Bharti Tinajero Collected: 04/04/2017 1430 MD [facility]je[facility] First Screen: Yenny Zhu Received: 04/05/2017 1443 Specimen: ADVANCED MANUFACTURING TECHNICIAN ThinPrep Vial Screening, Cervical/Vaginal 04/11/2017 1:48 PM CDT [facility] INTERPRETATION/ RESULT NEGATIVE FOR INTRAEPITHELIAL LESION OR MALIGNANCY (NIL) (none) 04/11/2017 1:48 PM CDT [facility] IMEN ADEQUACY Satisfactory for evaluation Endocervical component present 04/11/2017 1:48 PM CDT [facility] HPV REQUEST HPV and PAP 04/11/2017 1:48 PM CDT [facility] Last Pap Date 11/22/2013 04/11/2017 1:48 PM CDT [facility] EN[facility] LABORAT[facility] Last Pap Result NIL 7 1:48 PM CDT [facility] Automated Review Successful 04/11/2017 1:48 PM CDT [facility] Comment:Specimen processed s uccessfully by automated staple processing machine operator device, ThinPrep Imaging System, [employer] ANCILLARY TESTING ADVANCED MANUFACTURING TECHNICIAN HPV Ordered, Please see separate report 04/11/2017 1:48 PM CDT [facility] Note The pap test is a screening technique, not a diagnostic procedure. It is used primarily to screen for squamous cancers and precursor lesions. Published studies have shown that it is subject to both false negative and false positive results. The pap test should not be used as the sole means to diagnose or exclude pre-malignant and malignant lesions. Interpreted at [facility] ([facility], [facility], [facility], [facility], [facility], [facility], [facility]) 04/11/2017 1:48 PM CDT [facility] ENTRAL LABORATORY Other (Cervical/Vagina l) 04/04/2017 2:30 PM CDT 04/05/2017 2:43 PM CDT Bharti Tinajero MD PATHOLOGY/ CYTOLOGY [facility] LAB[facility]ATORY [address] [place] [address], * LIPID PANEL W REFLEX MEASURED LDL (01/08/2013 4:03 PM CDT) CHOLESTEROL,TOTAL 155 100 - 199 mg/dL 01/08/2013 4:46 PM CDT [facility] TRIGLYCERIDES 146 <150 mg/dL 01/08/2013 4:46 PM CDT [facility] HDL CHOLESTEROL 44 >40 mg/dL 3 4:46 PM T [facility] NON-HDL CHOLESTEROL 111 <145 mg/dl 01/08/2013 4:46 PM T [facility] CHOL/HDL RATIO 3.52 <4.50 01/08/2013 4:46 PM T [facility] LDL CHOLESTEROL 82 <=130 mg/dL 01/08/2013 4:46 PM T [facility] PATIENT STATUS NON-FASTI NG 01/08/2013 4:46 PM CDT [facility] Blood specimen (specimen) BLOOD SPECIMEN / Unknown 01/08/2013 4:03 PM CDT 01/08/2013 4:03 PM CDT Aba Storm MD CHEMISTRY [facility] [address] [place] [address] from Last 3 Months or Most Recently Relevant to Health Maintenance Care Teams Dry Cell Battery Assembler Relationship Specialty Start Date End Date Josias Ca MD [address] [place] [phone] PCP - General Family Practice 12/05/17
== END 2024-08-11 14:25 | disposition home or self-care (01) ==
LOC: NFLDREF 08-13 09:21
PROVIDERS: PCP Family Medicine; Referring Provider Family Medicine; Visit Provider Nurse Practitioner Family
DX: R30.0 Dysuria (principal); N30.01 Acute cystitis with hematuria
CPT/HCPCS: 87086; 87186

== ENCOUNTER 2024-10-24 07:30 | Outpatient (RCR) | payer BC, SELFPAY ==
--- NOTE | 2024-07-24 08:24 | PT.OPEX ---
PT [facility] Outpatient Eval PT [facility] Outpatient Eval Start: 07/24/24 07:18 Freq: Status: Active Protocol: Document 07/24/24 07:36 HLA (Rec: 07/24/24 08:17 HLA [id number]) E-signed By Maria Guadalupe Anderson, PT, DPT Physical Therapy Outpatient Evaluation Insurance Information Insurance Name [employer] Medical Diagnosis R TKA Treating Diagnosis weakness, stiffness, pain R knee Referring MD Nelson Subjective Preferred Name Debra Subjective Pain R knee limits standing, walking, can't sleep, feels very ready to get her knee replaced so she can get back to activities. 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 [employer] Precautions Weight Bearing Status Weight Bear as Tolerated Therapy Limitations/Systems Review Not Limited Objective Range of Motion UEs WNL L LE WNL R knee 10-80 degrees HC tight on R Strength WNL except 4/5 R knee, tender Swelling patellar edema Palpation pain medial joint line Balance & Gait gt steady, some knee stiffness at swing on R, limited distances due to pain balance WNL Sensation/Reflexes intact to light touch Functional Test Performed & Score LEFS 21/80 Assessment Assessment/Impression Debra is a 58 year old female with R knee OA, spurs, pain and impaired ROM 10-80 degrees limiting her gait, standing and sleep. She is undergoing R TKA with Dr. Nelson and scheduled for OP PT starting 07/30/24. Pt has PMHx of obesity, smoking, chronic abdominal pain, asthma, depression, and shldr adhesive capsulitis. She lives alone, but will stay at her [address] short term after surgery. She plans day surgery. Today, pt was instructed in TKA ex program ( quad sets, ham sets, ankle pumps, heel slides, SAQ, SLR, seated knee flex/ext and hamstring stretches) per protocol to be practiced pre- operatively and for improved learning post-operatively. Pt was instructed in hospital post-op progression in PT, safety, fall prevention. Pt was instructed in positioning in chair, use of ice/polar care, bed, transfer safety, gt safety with walker, stairs, car transfers, showering, dressing, and outpatient therapy progression. Plan of Care Rehabilitation Potential Excellent Physical Therapy Goals 1. Within this session: Pt will verbalize understanding of pre-op/post-op safety, mobility and exercises with home program issued and pt returning for ongoing therapy after TKA replacement. Within 10-12 weeks: 1. Pt will have knee AROM 0- 120 degrees for transfers, ADLs, and stairs independence. 2. Pt will amb 20 min with se cane or no device as indicated, safely and independently for community and household ambulation. 3. Pt will be independent in home ex program for rodent exterminator pain management and to promote independence and to decrease fall risk. 4. Pt will ascend/descend 13 stairs with railing independently for community mobility. Coordination/Communication With Referral Source Treatment Plan/Direct Interventions Gait Training,Manual Therapy, Neuromuscular Re-ed,Orthotics/ Braces,Therapeutic Activities Patient Will Be Discharged From Therapy Completion of LTG(s),Skills Plateau,Independent w/HEP, Independently Progressing Evaluation Billing Untimed Code Treatment Minutes 10 PT Eval No Charge No Complexity Low Certification Information Initial Certification Date 07/24/24 Ending Certification Date 10/21/24 Provider Signature Required Yes Provider Signature Shows Agreement With POC & Medical Necessity Physician NPI Number Write NPI# Here Physician Comment/Change : Physician Signature & Date Requested Please Sign/Date Here
--- OUTSIDE RECORDS SUMMARY | 2024-09-19 07:37 | XMS_ITS | Clinical Summary ---
Author Organization [employer] [facility] [employer] [facility] Address [place], [place] [address] Care Team Providers Care Housing Case Manager Name Role Phone Josias Ca MD Primary Care Provider [phone] Allergies Active Allergy Reactions Criticality Noted Date Comments Codeine Syncope,Vomiting 02/01/2007 Medications estradioL (ESTRACE) 1 mg tablet Take 1 [...] Answer Date Recorded PHQ-2 Score 0 11/18/2018 Comments No Sex and Gender Information Value Date Recorded Sex Assigned at Not on file Legal Sex Female 6:48 AM [employer] Gender Identity Not on file Sexual Orientation Not on file Occupation Industry Job Start Date Job End Date Not on file Not on file Not on file Not on file Obstetrics History Para Term AB IAB SAB Ectopic Multiple Livin g Live Births 3 3 3 3 Date Outcome GA Total Labor Labor/2nd/3rd Weight Sex Type Anes PTL Julissa A1 A5 Name Clin Term Term Term Last Filed Vital Signs Vital Sign Reading Time Taken Comments Blood Pressure 129/87 01/10/2018 3:08 PM CDT Pulse 84 08/08/2022 2:59 PM [employer] Temperature 36.7 C (98 F) 01/10/2018 3:08 PM CDT Respiratory Rate 18 03/07/2010 2:19 PM CDT Oxygen Saturation 96% 08/08/2022 2:59 PM [employer] Inhaled Oxygen Concentration - - Weight 92.5 kg (204 lb) 08/08/2022 2:59 PM [employer] Height 167.5 cm (5' 5.95) 01/10/2018 3:08 PM CD T Body Mass Index 32.98 01/10/2018 3:08 PM CDT Plan of Treatment Health Maintenance Due Date Last Done Comments HIV for age 15-65 1982 Hepatitis C screening for age 18-79 1985 Pneumococcal series for age 50+ (1 of 1 - PCV) 2017 Zoster (shingles) series for age 50+ (1 [...] Tdap Completed 11/25/2012 Pneumococcal series for age 6-49 Aged Out No longer eligible based on patient's age to complete this topic Procedures Procedure Name Priority Date/Time Associated Diagnosis Comments XR MAMMO UNI DIAGNOSTIC RIGHT Routine 02/15/2018 1:30 PM CDT Lump of axilla, right SCAN-COLONOSCOPY 10/17/2017 12:0 0 AM [employer] PROFESSOR THIN PREP PAP SCREEN IMAGED Routine 04/04/2017 [...] x 1.1 x 0.7 cm lymph node. us Michelle L Sigifredo ZAVALA-C MAMMO Final Resu lt * SCAN-COLONOSCOPY (10/17/2017 12:00 AM [employer]) us Scanner OTHER Final Result * FLORICULTURE PROFESSOR THIN PREP PAP SCREEN IMAGED (04/04/2017 2:30 PM CDT) Case Report Gynecologic Cytology Report Case: [id number] Authorizing Provider: Bharti Tinajero Collected: 04/04/2017 1430 MD Ijeoma First Screen: Yenny Zhu Received: 04/05/2017 1443 Specimen: FLORICULTURE PROFESSOR ThinPrep Vial Screening, Cervical/Vaginal 04/11/2017 1:48 PM [facility]T [facility] INTERPRETATION/ RESULT NEGATIVE FOR INTRAEPITHELIAL LESION OR MALIGNANCY (NIL) (none) 04/11/2017 1:48 PM CDT [facility] IMEN ADEQUACY Satisfactory for evaluation Endocervical component present 04/11/2017 1:48 PM CDT [facility] [facility] HPV REQUEST HPV and PAP 04/11/2017 1:48 PM CDT [employer] [facility] Last Pap Date 11/22/2013 04/11/2017 1:48 PM CDT [facility] Last Pap Result NIL 7 1:48 PM CDT [facility] Automated Review Successful 04/11/2017 1:48 PM CDT [facility] [employer] [facility] Comment:Specimen processed s uccessfully by automated clinical program director device, ThinPrep Imaging System, [employer] ANCILLARY TESTING FLORICULTURE PROFESSOR HPV Ordered, Please see separate report 04/11/2017 1:48 PM CDT [facility] ENTRAL LABORATORY Note The pap test is a screening technique, not a diagnostic procedure. It is used primarily to screen for squamous cancers and precursor lesions. Published studies have shown that it is subject to both false negative and false positive results. The pap test should not be used as the sole means to diagnose or exclude pre-malignant and malignant lesions. Interpreted at [facility] ([facility], [facility], [facility], [facility], [facility], [facility], [facility]) 04/11/2017 1:48 PM CDT [facility] Other (Cervical/Vagina l) 04/04/2017 2:30 PM CDT 04/05/2017 2:43 PM CDT us Bharti Tinajero MD PATHOLOGY/CYTOLOGY Final Result [facility] LAB[facility] [address] [place] [address], * LIPID PANEL W REFLEX MEASURED LDL (01/08/2013 4:03 PM CDT) CHOLESTEROL,TOTAL 155 100 - 199 mg/dL 01/08/2013 4:46 PM T [facility] TRIGLYCERIDES 146 <150 mg/dL 01/08/2013 4:46 PM [facility] HDL CHOLESTEROL 44 >40 mg/dL 3 4:46 PM [facility] NON-HDL CHOLESTEROL 111 <145 mg/dl 01/08/2013 4:46 PM [facility] CHOL/HDL RATIO 3.52 <4.50 01/08/2013 4:46 PM [facility] LDL CHOLESTEROL 82 <=130 mg/dL 01/08/2013 4:46 PM [facility] PATIENT STATUS NON-FASTI NG 01/08/2013 4:46 PM T [facility] Blood specimen (specimen) BLOOD SPECIMEN / Unknown 01/08/2013 4:03 PM CDT 01/08/2013 4:03 PM CDT us Aba Storm MD CHEMISTRY Final Re sult [facility] [address] [place] [address] from Last 3 Months or Most Recently Relevant to Health Maintenance Insurance [facility] Care Teams Housing Case Manager Relationship Specialty Start Date End Date Josias Ca MD [address] [place] [id number] PCP - General Family Practice 12/05/17
--- OUTSIDE RECORDS SUMMARY | 2024-09-19 07:37 | XMS_ITS | Continuity of Care Document ---
Author Name [email or web address] User [id number] Address Unknown Organization Unknown Address Unknown Procedures FILTER APPLIED:Only known Procedures with Onset Date within the last 5 years Procedure Date Procedure Provider Harley garcia Information Status BREAST TOMOSYNTHESIS BI (49196) Completed SCR MAMMO BI INCL CAD (17101) Completed LIPID PANEL (13417) Comp leted LIPID PANEL (89889) Comp leted ANES IPER UPR ABD NOS (50666) Completed LAPAROSCOPY, SURGICAL (62609) Completed ECHO EXAM OF ABDOMEN (93275) Completed COMPREHEN METABOLIC PANEL (49341) Completed Encounters FILTER APPLIED:Only known Encounters with Admission Date within the last 5 years Encounter Location Admission Discharge Billing Code [employer] [place] [facility]amod Outpatient Yuliet Ray Outpatient Yuliet Ray Outpatient Sari Candelaria Outpatient Josias Ca Outpatient Christiano Bashir
== END 2024-10-24 13:06 | disposition home or self-care (01) ==
PROVIDERS: PCP Family Medicine; Visit Provider Orthopaedic Surgery Sports Medicine
DX: M17.11 Unilateral primary osteoarthritis, right knee (principal); Z96.651 Presence of right artificial knee joint; M25.561 Pain in right knee; R53.1 Weakness; M25.661 Stiffness of right knee, not elsewhere classified; Z51.89 Encounter for other specified aftercare
CPT/HCPCS: 97110; 97112; 97116; 97140; 97161; 97164

== ENCOUNTER 2024-11-18 16:52 | Outpatient (CLI) | payer BC, SELFPAY ==
--- NOTE | 2024-11-18 17:00 | CRLHL7_ITS ---
For Patients: As a result of the Century Cures Act, medical imaging exams and procedure reports are released immediately into your electronic medical record. You may view this report before your referring provider. If you have questions, please contact your health care provider. BILATERAL SCREENING MAMMOGRAM WITH COMPUTER-AIDED DETECTION AND TOMOSYNTHESIS TECHNIQUE: CC and MLO views were obtained. These mammographic images have been obtained using full-field digital technique. These mammographic images were interpreted with the benefit of computer-aided detection. Breast Tomosynthesis was used in this interpretation. COMPARISON FILM: 10/29/23, 08/26/21, 04/04/17. FINDINGS: The breasts are heterogeneously dense, which may obscure small masses. IMPRESSION: There is no radiographic evidence for malignancy. ASSESSMENT: BI-RADS Category 2: Benign RECOMMENDATION: Routine screening mammogram in 1 year. A lay language report of this examination will be provided to the patient. Jeremy Quinn M.D. Diagnostic Radiologist [email or web address] SP/Dictated by: Jeremy Quinn MD @ 11/19/2024 10:14:00 AM (Electronically Signed)
== END 2024-11-18 16:53 | disposition home or self-care (01) ==
LOC: MAMMO 16:53
PROVIDERS: PCP Family Medicine; Visit Provider Obstetrics & Gynecology
DX: Z12.31 Encounter for screening mammogram for malignant neoplasm of breast (principal); R92.333 Mammographic heterogeneous density, bilateral breasts
CPT/HCPCS: 77063; 77067

== ENCOUNTER 2025-08-04 08:15 | Outpatient (CLI) | payer BC, SELFPAY | END 2025-08-04 08:16 | disposition home or self-care (01) | PROVIDERS: PCP Family Medicine; Visit Provider Internal Medicine | DX: R53.83 Other fatigue (principal) | CPT/HCPCS: 80053; 80061; 84443 ==